=== PATIENT | male | born 1965 | race Two or more races ===

== ENCOUNTER 2019-05-13 08:52 | Day surgery (SDC) | payer OTHER ==
[~2019-05-13 08:52] MED LIST: ASA81 MG PO; CENTRUM MEN'S1 EACH PO; COZAAR100 MG PO; GLIMEPIRIDE2 MG PO; METFORMIN HCL1000 MG PO; PLAVIX75 MG PO
== END 2019-05-13 15:45 | disposition home or self-care (01) ==
LOC: CIR.AMB 08:52 → EDBD 13:30 → CIR.AMB 15:45
DX: S68.121A Partial traumatic metacarpophalangeal amputation of left index finger, initial encounter (principal)

== ENCOUNTER → 2025-01-30 09:49 | Outpatient (CLI) | payer OTHER ==
[~2025-01-30 09:49] MED LIST changes: +AMLODIPINE BESY10 MG PO; +HUMALOG100 UNIT/1; +HYDROCHLOROTH12.5 M2 PO; +ISOSORBIDE DINI30 MG PO; +LANTUS SOL100 UNIT/1; +LIPITOR40 M1 PO; +TOPROL XL100 M1 PO; +TRAMADOL HCL E100 M1 PO; +XARELTO2.5 MG PO; +ZETIA10 MG PO
[2025-01-30 10:23] LABS: URINE APPEARANCE Clear; URINE BILIRRUBIN Negative (NEGATIVE); URINE BLOOD Trace; URINE COLOR Yellow; URINE KETONE Negative (NEGATIVE); URINE LEUKOCYTE Negative; URINE NITRATE Negative; URINE PROTEIN 30 (NEGATIVE); URINE UROBILINOGEN 0.2 E.U./dl
[2025-01-30 10:25] LABS: HEMATOCRIT 42.7 % (39.0-48.0); HEMOGLOBIN 14.2 g/dL (13-16.00); MEAN CELL VOLUME 83.6 fL (80.0-100.00); MEAN CORPUSCULAR HEMOGLOBIN 27.9 pg (27.00-32.0); MEAN CORPUSCULAR HGB CONC 33.3 g/dl (32.0-36.0); PLATELET COUNT 188 K/uL (150-450); RED BLOOD COUNT 5.11 M/uL (4.00-6.00); RED CELL DISTRIBUTION WIDTH 13.4 % (11.5-14.5)
[2025-01-30 10:27] LABS: URINE BACTERIA 12.2 uL (0.0-1933); URINE RBC 7.9 uL (0.0-20.8)
[2025-01-30 10:38] LABS: URINE CAST 0.14 uL (0.0-1.40); URINE EPITHELIAL CELLS 0.7 uL (0.0-38.8); URINE GLUCOSE 250 MG/DL (NEGATIVE); URINE WBC 0.4 uL (0.0-23.2)
[2025-01-30 10:48] LABS: INR 0.96; PARTIAL THROMBOPLASTIN TIME 28.5 SECONDS (22.0-34.0); PROTHROMBIN TIME 10.5 SECONDS (9.0-11.5)
[2025-01-30 11:37] LABS: ALBUMIN 3.9 gm/dL (3.4-5.0); BILIRUBIN TOTAL 0.8 mg/dL (0.3-1.2); CREATININE SERUM 1.22 mg/dL (0.70-1.30); GFR 60.39; GLOBULINA 3.8 G/DL (2.4-3.5); POTASSIUM 5.58 mEq/L (3.5-5.1); TOTAL PROTEIN 7.7 gm/dL (6.4-8.2)
== END | disposition home or self-care (01) ==
LOC: LAB 09:49
PROVIDERS: ATTEND Orthopaedic Surgery Hand Surgery
DX: N39.0 Urinary tract infection, site not specified (principal); E11.9 Type 2 diabetes mellitus without complications; E78.00 Pure hypercholesterolemia, unspecified; E78.3 Hyperchylomicronemia; D65 Disseminated intravascular coagulation [defibrination syndrome]; D66 Hereditary factor VIII deficiency; Z01.810 Encounter for preprocedural cardiovascular examination

== ENCOUNTER → 2025-02-10 | Day surgery (SDC) | payer OTHER ==
[2025-01-30 13:16] VITALS: BP 170/78
[~2025-02-10] VITALS: Ht 180.3 cm; Wt 88.5 kg
[~2025-02-10] MED LIST changes: +BUPIVACAINE HCL/MPF 0.5% 30ML VIAL ONE; +CEFAZOLIN SODIUM 1,000 MG VIAL ONE; +hydrALAZINE HCL 20 MG VIAL ONE
== END | disposition home or self-care (01) ==
LOC: ADM 01-30 08:45 → CIR.AMB 06:22
PROVIDERS: ATTEND Orthopaedic Surgery Hand Surgery
DX: I96 Gangrene, not elsewhere classified (principal); E11.52 Type 2 diabetes mellitus with diabetic peripheral angiopathy with gangrene; Z88.6 Allergy status to analgesic agent; Z88.5 Allergy status to narcotic agent

== ENCOUNTER 2025-05-19 06:18 | Day surgery (SDC) | payer OTHER ==
[2025-05-11 10:53] LABS: BASO % 0.4 % (0.1-1.2); EOS # 0.35 (0.04-0.54); EOS % 4.7 % (0.7-7.0); LYMPH # 2.11 (1.18-3.74); LYMPH % 28.2 % (19.3-53.1); MEAN PLATELET VOLUME 9.80 fl (9.4-12.4); MONO # 0.49 (0.24-0.82); MONO % 6.6 % (4.7-12.5); NEUT # 4.45 (1.56-6.13); NEUT % 59.4 % (34.0-71.1); RED CELL DISTRIBUTION WIDTH 13.9 % (11.6-14.4)
[2025-05-11 10:57] LABS: URINE APPEARANCE Clear; URINE BILIRRUBIN Negative (NEGATIVE); URINE BLOOD Trace; URINE COLOR Yellow; URINE GLUCOSE Negative (NEGATIVE); URINE KETONE Negative (NEGATIVE); URINE LEUKOCYTE Negative; URINE NITRATE Negative; URINE UROBILINOGEN 1.0 E.U./dl
[2025-05-11 10:59] LABS: URINE BACTERIA 8.3 uL (0.0-1933); URINE EPITHELIAL CELLS 2.1 uL (0.0-38.8); URINE RBC 13.6 uL (0.0-20.8); URINE WBC 1.8 uL (0.0-23.2)
[2025-05-11 11:16] LABS: INR 0.98
[2025-05-11 11:36] VITALS: BP 180/60
[2025-05-11 11:45] LABS: ALT/SGPT 20.0 U/L (12-78); AST/SGOT 18.0 U/L (15-37); BILIRUBIN TOTAL 0.82 mg/dL (0.3-1.2); BUN CREA RATIO 17.0 (7.0-25.0); CREATININE SERUM 0.76 mg/dL (0.70-1.30); GFR 104.27; GLOBULINA 3.5 G/DL (2.4-3.5); GLUCOSE FASTING 127.0 mg/dL (65-100); OSMOLALITY SERUM 283.0 MOSM/KG (275-295)
[2025-05-11 12:10] LABS: URINE CAST 0.00 uL (0.0-1.40); URINE PROTEIN 100 (NEGATIVE)
[~2025-05-19] VITALS: Ht 180.3 cm; Wt 88.5 kg
[~2025-05-19 06:18] MED LIST changes: -BUPIVACAINE HCL/MPF 0.5% 30ML VIAL ONE; -CEFAZOLIN SODIUM 1,000 MG VIAL ONE; +ECOTRIN81 MG PO; +JENTADUETO 2.51 EAC2 PO; +MORPHINE SULFATE 4 MG/ML VIAL IV ONE; +PEPCID AC20 MG; -hydrALAZINE HCL 20 MG VIAL ONE
[2025-05-19] MEDS ORDERED: ISOPROPYL ALCOHOL 30 ML OUNCE TOP ONE (12:45)
[2025-05-19] MEDS ORDERED: SUGAMMADEX SODIUM 200 MG/2 ML VIAL IV ONE (12:45)
[2025-05-19] MEDS ORDERED: BUPIVACAINE HCL 30 ML VIAL IJ ONE (12:45)
[2025-05-19] MEDS ORDERED: CEFAZOLIN SODIUM 1,000 MG VIAL IV ONE (12:45)
[2025-05-19] MEDS ORDERED: BACITRACIN 28.35 GM OINT.TUBE TOP ONE (13:45)
[2025-05-19] MEDS ORDERED: ENALAPRILAT DIHYDRATE 1.25 MG/ML VIAL IV ONE (15:30)
== END 2025-05-19 17:20 | disposition home or self-care (01) ==
LOC: CIR.AMB 06:18
PROVIDERS: ATTEND Orthopaedic Surgery Hand Surgery
DX: T87.41 Infection of amputation stump, right upper extremity (principal); E11.52 Type 2 diabetes mellitus with diabetic peripheral angiopathy with gangrene; L03.011 Cellulitis of right finger

== ENCOUNTER 2025-06-02 11:40 | Inpatient (IN) | payer OTHER ==
[~2025-06-02] VITALS: Ht 180.3 cm; Wt 88.5 kg
[~2025-06-02 11:40] MED LIST changes: -MORPHINE SULFATE 4 MG/ML VIAL IV ONE
[2025-06-02] MEDS ORDERED: JENTADUETO 2.51 EAC2 PO (12:02)
[2025-06-02] MEDS ORDERED: PIPERACILLIN/TAZOBACTAM SODIUM 3.375 GM VIAL IV ONE (12:30)
[2025-06-02 12:58] LABS: BASO % 0.3 % (0.1-1.2); EOS # 0.01 (0.04-0.54); EOS % 0.0 % (0.7-7.0); LYMPH # 1.78 (1.18-3.74); LYMPH % 6.5 % (19.3-53.1); MEAN PLATELET VOLUME 8.80 fl (9.4-12.4); MONO # 1.34 (0.24-0.82); MONO % 4.9 % (4.7-12.5); NEUT # 23.67 (1.56-6.13); NEUT % 87.1 % (34.0-71.1); RED CELL DISTRIBUTION WIDTH 13.5 % (11.6-14.4)
[2025-06-02 13:16] LABS: COVID-19 AG NEGATIVE (NEGATIVE)
[2025-06-02 13:37] LABS: BUN CREA RATIO 13.0 (7.0-25.0); CREATININE SERUM 1.2 mg/dL (0.70-1.30); GFR 61.55; OSMOLALITY SERUM 271.0 MOSM/KG (275-295)
[2025-06-02 13:41] LABS: GLUCOSE FASTING 242.0 mg/dL (65-100)
[2025-06-02 14:16] LABS: INR 1.23
[2025-06-02 14:36] LABS: URINE APPEARANCE Cloudy; URINE BILIRRUBIN Moderate (NEGATIVE); URINE BLOOD Large; URINE COLOR Dark Yellow; URINE KETONE 15 (NEGATIVE); URINE LEUKOCYTE Trace; URINE NITRATE Negative; URINE PROTEIN >=1000 (NEGATIVE); URINE UROBILINOGEN 1.0 E.U./dl
[2025-06-02 14:41] LABS: URINE BACTERIA 135.5 uL (0.0-1933); URINE EPITHELIAL CELLS 19.8 uL (0.0-38.8); URINE RBC 355.6 uL (0.0-20.8); URINE WBC 17.3 uL (0.0-23.2)
[2025-06-02 15:00] LABS: URINE CAST > 21.83 uL (0.0-1.40); URINE GLUCOSE 250 MG/DL (NEGATIVE)
[2025-06-02] MEDS ORDERED: LINEZOLID IN DEXTROSE 5% 300 ML IV SCH (18:57)
[2025-06-02] MEDS ORDERED: MEROPENEM 1,000 MG in 0.9 % SODIUM CHLORIDE 100 ML IV ONE (19:00)
[2025-06-02] MEDS ORDERED: ACETAMINOPHEN 500 MG GEL..CAP PO PRN (19:00)
[2025-06-02] MEDS ORDERED: 0.9 % SODIUM CHLORIDE 1,000 ML IV ONE (19:00)
[2025-06-02] MEDS ORDERED: 0.9 % SODIUM CHLORIDE 1,000 ML IV SCH ×2 (19:00→19:30)
[2025-06-02] MEDS ORDERED: DEXTROSE 50 % IN WATER 0.5 G/ML DISP.SYRIN IV PRN ×2 (19:15→19:30)
[2025-06-02] MEDS ORDERED: INSULIN LISPRO 1,000 UNIT/10 ML UNITS SUBCUTANEO PRN ×2 (19:15→19:30)
[2025-06-02] MEDS ORDERED: FAMOTIDINE/PF 20 MG in 0.9 % SODIUM CHLORIDE 8 ML IV PUSH SCH (19:25)
[2025-06-02] MEDS ORDERED: TRAMADOL HCL 50 MG TABLET PO PRN (19:30)
[2025-06-02] MEDS ORDERED: MEROPENEM 500 MG/VIAL VIAL IV SCH (20:00)
[2025-06-02 22:18] LABS: INR 1.24
[2025-06-03 02:56] VITALS: BP 130/55; O2SAT 97
[2025-06-03 06:22] LABS: BASO % 0.3 % (0.1-1.2); EOS # 0.01 (0.04-0.54); EOS % 0.0 % (0.7-7.0); LYMPH # 2.11 (1.18-3.74); LYMPH % 6.5 % (19.3-53.1); MEAN PLATELET VOLUME 9.50 fl (9.4-12.4); MONO # 2.29 (0.24-0.82); MONO % 7.1 % (4.7-12.5); NEUT # 27.19 (1.56-6.13); NEUT % 83.9 % (34.0-71.1); RED CELL DISTRIBUTION WIDTH 13.7 % (11.6-14.4)
[2025-06-03 06:51] LABS: ALT/SGPT 29.0 U/L (12-78); AST/SGOT 29.0 U/L (15-37); BILIRUBIN TOTAL 0.67 mg/dL (0.3-1.2); BUN CREA RATIO 15.0 (7.0-25.0); CREATININE SERUM 1.14 mg/dL (0.70-1.30); GFR 65.3; GLOBULINA 4.4 G/DL (2.4-3.5); GLUCOSE FASTING 110.0 mg/dL (65-100); OSMOLALITY SERUM 272.0 MOSM/KG (275-295)
[2025-06-03] MEDS ORDERED: ENOXAPARIN SODIUM 40 MG/0.4 ML SYRINGE SUBCUTANEO SCH (09:00)
[2025-06-03 09:12] VITALS: BP 149/83; O2SAT 95
[2025-06-03] MEDS ORDERED: GABAPENTIN 800 MG TABLET PO SCH (17:00)
[2025-06-03 18:27] VITALS: BP 140/70
[2025-06-03] MEDS ORDERED: MORPHINE SULFATE 4 MG/ML VIAL IV ONE (20:35)
[2025-06-03 23:02] VITALS: O2SAT 96
[2025-06-04] VITALS (7 sets, daily range): BP systolic 133–147; BP diastolic 69–86; O2SAT 91–98
[2025-06-04] MEDS ORDERED: TRAMADOL HCL 50 MG TABLET PO PRN (05:15)
[2025-06-04 05:41] LABS: BUN CREA RATIO 14.0 (7.0-25.0); CREATININE SERUM 1.06 mg/dL (0.70-1.30); GFR 71.02; GLUCOSE FASTING 193.0 mg/dL (65-100); OSMOLALITY SERUM 278.0 MOSM/KG (275-295)
[2025-06-04] MEDS ORDERED: INSULIN LISPRO 1,000 UNIT/10 ML UNITS SUBCUTANEO PRN (11:45)
[2025-06-04] MEDS ORDERED: DEXTROSE 50 % IN WATER 0.5 G/ML VIAL IV PRN (11:45)
[2025-06-04 15:37] LABS: BASO % 0.3 % (0.1-1.2); EOS # 0.07 (0.04-0.54); EOS % 0.3 % (0.7-7.0); LYMPH # 1.84 (1.18-3.74); LYMPH % 7.9 % (19.3-53.1); MEAN PLATELET VOLUME 8.90 fl (9.4-12.4); MONO # 1.75 (0.24-0.82); MONO % 7.5 % (4.7-12.5); NEUT # 19.17 (1.56-6.13); NEUT % 81.9 % (34.0-71.1); RED CELL DISTRIBUTION WIDTH 14.1 % (11.6-14.4)
[2025-06-04 16:43] LABS: ALT/SGPT 14.0 U/L (12-78); AST/SGOT 15.0 U/L (15-37); BILIRUBIN TOTAL 0.41 mg/dL (0.3-1.2); BUN CREA RATIO 16.0 (7.0-25.0); CREATININE SERUM 0.96 mg/dL (0.70-1.30); GFR 79.63; GLOBULINA 3.7 G/DL (2.4-3.5)
[2025-06-04 16:44] LABS: GLUCOSE FASTING 256.0 mg/dL (65-100); OSMOLALITY SERUM 283.0 MOSM/KG (275-295)
[2025-06-04] MEDS ORDERED: INSULIN GLARGINE,HUM.REC.ANLOG 1,000 UNITS/10 ML UNITS SUBCUTANEO SCH (21:00)
[2025-06-05] VITALS (9 sets, daily range): BP systolic 109–159; BP diastolic 55–80; O2SAT 90–96
[2025-06-05 06:58] LABS: BUN CREA RATIO 14.0 (7.0-25.0); CREATININE SERUM 0.96 mg/dL (0.70-1.30); GFR 79.63; OSMOLALITY SERUM 286.0 MOSM/KG (275-295); TSH 1.43 uIU/mL (0.358-3.74)
[2025-06-05 06:59] LABS: GLUCOSE FASTING 288.0 mg/dL (65-100)
[2025-06-05] MEDS ORDERED: INSULIN LISPRO 1,000 UNIT/10 ML UNITS SUBCUTANEO SCH (08:00)
[2025-06-05] MEDS ORDERED: INSULIN GLARGINE,HUM.REC.ANLOG 1,000 UNITS/10 ML UNITS SUBCUTANEO SCH (09:00)
[2025-06-05] MEDS ORDERED: MEPERIDINE HCL/PF 25 MG/ML VIAL IV PRN (15:15)
[2025-06-05] MEDS ORDERED: MORPHINE SULFATE 4 MG/ML CARTRIDGE IV PRN (16:45)
[2025-06-05] MEDS ORDERED: LINEZOLID 600 MG TABLET PO SCH (21:00)
[2025-06-06] VITALS (9 sets, daily range): BP systolic 100–134; BP diastolic 41–71; O2SAT 90–98
[2025-06-06 08:07] LABS: BASO % 0.4 % (0.1-1.2); EOS # 0.31 (0.04-0.54); EOS % 1.9 % (0.7-7.0); LYMPH # 2.09 (1.18-3.74); LYMPH % 12.9 % (19.3-53.1); MEAN PLATELET VOLUME 9.00 fl (9.4-12.4); MONO # 1.26 (0.24-0.82); MONO % 7.8 % (4.7-12.5); NEUT # 12.22 (1.56-6.13); NEUT % 75.8 % (34.0-71.1); RED CELL DISTRIBUTION WIDTH 14.2 % (11.6-14.4)
[2025-06-06 08:13] LABS: ALT/SGPT 17.0 U/L (12-78); AST/SGOT 23.0 U/L (15-37); BILIRUBIN TOTAL 0.4 mg/dL (0.3-1.2); BUN CREA RATIO 11.0 (7.0-25.0); CREATININE SERUM 0.81 mg/dL (0.70-1.30); GFR 96.88; GLOBULINA 3.7 G/DL (2.4-3.5); GLUCOSE FASTING 127.0 mg/dL (65-100); OSMOLALITY SERUM 280.0 MOSM/KG (275-295)
[2025-06-06] MEDS ORDERED: TRAMADOL HCL 50 MG TABLET PO PRN (11:00)
[2025-06-06] MEDS ORDERED: MAGNESIUM SULFATE IN WATER 4 GM/100 ML PIGGYBACK IV NR (14:00)
[2025-06-06] MEDS ORDERED: AMINO ACIDS 1 EACH TABLET PO SCH (17:00)
[2025-06-07] VITALS (7 sets, daily range): BP systolic 107–162; BP diastolic 50–81; O2SAT 90–100
[2025-06-07] MEDS ORDERED: INSULIN LISPRO 1,000 UNIT/10 ML UNITS SUBCUTANEO SCH (08:00)
[2025-06-08] VITALS (8 sets, daily range): BP systolic 122–139; BP diastolic 61–94; O2SAT 90–99
[2025-06-08] MEDS ORDERED: AMPICILLIN SODIUM/SULBACTAM NA 3,000 MG VIAL IV SCH (14:00)
[2025-06-08] MEDS ORDERED: MORPHINE SULFATE 4 MG/ML CARTRIDGE IV PRN (23:45)
[2025-06-09] VITALS (7 sets, daily range): BP systolic 139–158; BP diastolic 56–75; O2SAT 90–99
[2025-06-09 06:51] LABS: BASO % 0.5 % (0.1-1.2); EOS # 0.28 (0.04-0.54); EOS % 3.2 % (0.7-7.0); LYMPH # 1.48 (1.18-3.74); LYMPH % 16.7 % (19.3-53.1); MEAN PLATELET VOLUME 8.50 fl (9.4-12.4); MONO # 0.67 (0.24-0.82); MONO % 7.6 % (4.7-12.5); NEUT # 6.30 (1.56-6.13); NEUT % 71.0 % (34.0-71.1); RED CELL DISTRIBUTION WIDTH 14.0 % (11.6-14.4)
[2025-06-09 07:41] LABS: ERYTHROCYTE SEDIMENTATION RATE 105 mm/hr (0-20)
[2025-06-09 08:41] LABS: BUN CREA RATIO 10.0 (7.0-25.0); CREATININE SERUM 0.52 mg/dL (0.70-1.30); GFR 161.56; GLUCOSE FASTING 89.0 mg/dL (65-100); OSMOLALITY SERUM 287.0 MOSM/KG (275-295)
[2025-06-09 08:42] LABS: ALT/SGPT 11.0 U/L (12-78); AST/SGOT 12.0 U/L (15-37); BILIRUBIN TOTAL 0.27 mg/dL (0.3-1.2); GLOBULINA 3.3 G/DL (2.4-3.5)
[2025-06-09] MEDS ORDERED: INSULIN LISPRO 1,000 UNIT/10 ML UNITS SUBCUTANEO SCH (12:00)
[2025-06-10] VITALS (8 sets, daily range): BP systolic 111–159; BP diastolic 61–79; O2SAT 90–97
[2025-06-10] MEDS ORDERED: ACETAMINOPHEN 500 MG GEL..CAP PO PRN (16:00)
[2025-06-10] MEDS ORDERED: TRAMADOL HCL 50 MG TABLET PO PRN (16:00)
[2025-06-10 20:21] LABS: BASO % 0.4 % (0.1-1.2); EOS # 0.25 (0.04-0.54); EOS % 3.0 % (0.7-7.0); LYMPH # 1.55 (1.18-3.74); LYMPH % 18.3 % (19.3-53.1); MEAN PLATELET VOLUME 8.10 fl (9.4-12.4); MONO # 0.72 (0.24-0.82); MONO % 8.5 % (4.7-12.5); NEUT # 5.85 (1.56-6.13); NEUT % 69.0 % (34.0-71.1); RED CELL DISTRIBUTION WIDTH 14.3 % (11.6-14.4)
[2025-06-11] VITALS (7 sets, daily range): BP systolic 118–181; BP diastolic 60; O2SAT 90–100
[2025-06-12] VITALS (8 sets, daily range): BP systolic 123–172; BP diastolic 60–65; O2SAT 95–100
[2025-06-12 06:01] LABS: BASO % 0.5 % (0.1-1.2); EOS # 0.26 (0.04-0.54); EOS % 3.3 % (0.7-7.0); LYMPH # 1.62 (1.18-3.74); LYMPH % 20.6 % (19.3-53.1); MEAN PLATELET VOLUME 8.20 fl (9.4-12.4); MONO # 0.56 (0.24-0.82); MONO % 7.1 % (4.7-12.5); NEUT # 5.33 (1.56-6.13); NEUT % 68.0 % (34.0-71.1); RED CELL DISTRIBUTION WIDTH 14.4 % (11.6-14.4)
[2025-06-12 06:42] LABS: BUN CREA RATIO 12.0 (7.0-25.0); CREATININE SERUM 0.82 mg/dL (0.70-1.30); GFR 95.51; GLUCOSE FASTING 120.0 mg/dL (65-100); OSMOLALITY SERUM 281.0 MOSM/KG (275-295)
[2025-06-12] MEDS ORDERED: INSULIN LISPRO 1,000 UNIT/10 ML UNITS SUBCUTANEO SCH (08:00)
[2025-06-12] MEDS ORDERED: INSULIN GLARGINE,HUM.REC.ANLOG 1,000 UNITS/10 ML UNITS SUBCUTANEO SCH (09:00)
== END 2025-06-12 19:30 | disposition home or self-care (01) | DRG 853 ==
LOC: ER 11:40 → MEDI 19:54
PROVIDERS: Emergency Medicine; General Practice; Internal Medicine Endocrinology, Diabetes & Metabolism; Internal Medicine Infectious Disease; Orthopaedic Surgery Hand Surgery; ADMIT Internal Medicine; ATTEND Internal Medicine
PROC: 0LB70ZZ Excision of Right Hand Tendon, Open Approach (ICD-10-PCS; 2025-06-03)
PROC: 0J9J0ZZ Drainage of Right Hand Subcutaneous Tissue and Fascia, Open Approach (ICD-10-PCS; 2025-06-03)
PROC: 3E10X8Z Irrigation of Skin and Mucous Membranes using Irrigating Substance (ICD-10-PCS; 2025-06-03)
PROC: 4A12X4Z Monitoring of Cardiac Electrical Activity, External Approach (ICD-10-PCS; 2025-06-03)
PROC: 02HV33Z Insertion of Infusion Device into Superior Vena Cava, Percutaneous Approach (ICD-10-PCS; 2025-06-03)
PROC: B548ZZA Ultrasonography of Superior Vena Cava, Guidance (ICD-10-PCS; 2025-06-03)
PROC: B246ZZZ Ultrasonography of Right and Left Heart (ICD-10-PCS; 2025-06-03)
PROC: B54MZZZ Ultrasonography of Right Upper Extremity Veins (ICD-10-PCS; 2025-06-03)
PROC: B34HZZZ Ultrasonography of Right Upper Extremity Arteries (ICD-10-PCS; 2025-06-03)
PROC: 30233N1 Transfusion of Nonautologous Red Blood Cells into Peripheral Vein, Percutaneous Approach (ICD-10-PCS; 2025-06-09)
PROC: 0X6B0ZZ Detachment at Right Elbow Region, Open Approach (ICD-10-PCS; principal; 2025-06-09 14:30)
DX: A41.9 Sepsis, unspecified organism (principal); I50.31 Acute diastolic (congestive) heart failure; E11.52 Type 2 diabetes mellitus with diabetic peripheral angiopathy with gangrene; I96 Gangrene, not elsewhere classified; L02.511 Cutaneous abscess of right hand; L03.113 Cellulitis of right upper limb; N17.9 Acute kidney failure, unspecified; D62 Acute posthemorrhagic anemia; I13.0 Hypertensive heart and chronic kidney disease with heart failure and stage 1 through stage 4 chronic kidney disease, or unspecified chronic kidney disease; E11.65 Type 2 diabetes mellitus with hyperglycemia; N18.9 Chronic kidney disease, unspecified; Z79.84 Long term (current) use of oral hypoglycemic drugs; Z95.1 Presence of aortocoronary bypass graft; Z89.021 Acquired absence of right finger(s); Z89.512 Acquired absence of left leg below knee; B95.2 Enterococcus as the cause of diseases classified elsewhere; B96.5 Pseudomonas (aeruginosa) (mallei) (pseudomallei) as the cause of diseases classified elsewhere; B96.7 Clostridium perfringens [C. perfringens] as the cause of diseases classified elsewhere; B96.89 Other specified bacterial agents as the cause of diseases classified elsewhere